=== PATIENT | female | born 2000 | race African-American/Black ===

== ENCOUNTER 2021-06-16 20:41 | Emergency (ER) | payer OTHER ==
[~2021-06-16] VITALS: Ht 157.5 cm; Wt 51.8 kg
[2021-06-16 23:30] VITALS: BP 117/87
[2021-06-16] MEDS ORDERED: ACETAMINOPHEN 500 MG TABLET PO ONE (23:30)
== END 2021-06-17 00:56 | disposition home or self-care (01) ==
LOC: EMS 20:41
DX: S49.91XA Unspecified injury of right shoulder and upper arm, initial encounter (principal); W22.8XXA Striking against or struck by other objects, initial encounter; Y93.89 Activity, other specified; Y92.89 Other specified places as the place of occurrence of the external cause; Y99.0 Civilian activity done for income or pay
CPT/HCPCS: 99283